=== PATIENT | male | born 1995 | race Two or more races ===

== ENCOUNTER 2025-05-25 09:20 | Emergency (ER) | payer MEDICAID, SELFPAY ==
[2025-05-25 09:29] VITALS: BP 116/80; PULSE 58; RESP 16; TEMP 36.6; O2SAT 100; BMI 19.3
--- NOTE | 2025-05-25 09:42 | PD.EDRME ---
Rapid Medical Screening Exam [facility] Arrival date/time: 05/25/25 09:20 This is a 29-year-old male that comes into the emergency room with complaints of abdominal pain and vomiting that started this morning. Patient also has some diarrhea. Patient reports that he felt fine last night. He ate a burrito but this morning woke up sick. Patient denies alcohol use but does smoke marijuana per patient. Patient denies any past medical history. I have greeted and performed a focused initial assessment of this patient. Initial appropriate labs ordered at this time. A comprehensive ED assessment and evaluation of the patient and analysis of all test and completion of medical decision making process will be conducted by additional ED provider. Chief Complaint: Abdominal Pain Time Seen by Provider: 05/25/25 09:23 Vital signs: Vital Signs Temperature 97.9 F 05/25/25 09:29 Pulse Rate 58 L 05/25/25 09:29 Respiratory Rate 16 05/25/25 09:29 Blood Pressure 116/80 05/25/25 09:29 Pulse Oximetry (%) 100 05/25/25 09:29 Oxygen Delivery Method Room Air 05/25/25 09:29 Exam: Diffuse tenderness throughout abdomen, alert and oriented, breathing even and unlabored. Clinical Impression: Abdominal pain
[2025-05-25] MEDS: ONDANSETRON ODT 4 MG TABRAP PO (09:54)
[2025-05-25 10:08] LABS: Basophils # (Auto) 0.0 Thou/mm3 (0.0-0.2); Basophils % (Auto) 0 % (0-2.5); Eosinophils # (Auto) 0.0 Thou/mm3 (0.0-0.5); Eosinophils % (Auto) 0 % (0-10); Hematocrit 42.7 % (41.0-53.0); Hemoglobin 14.8 g/dL (13.5-16.0); Immature Granulocytes Auto 0.04 Thou/mm3 (0.00-0.00); Lymphocytes # (Auto) 1.2 Thou/mm3 (1.0-4.8); Lymphocytes % (Auto) 9 % (10-50); Mean Corpuscular HGB Conc 34.7 g/dl (31.0-37.0); Mean Corpuscular Hemoglobin 32.6 pg (25.0-35.0); Mean Corpuscular Volume 94 fL (80-100); Monocytes # (Auto) 0.5 Thou/mm3 (0.0-0.8); Monocytes % (Auto) 3 % (0-12); Neutrophils # (Auto) 12.4 Thou/mm3 (1.8-7.7); Neutrophils % (Auto) 88 % (37-80); Nucleated Red Blood Cell # 0.00 Thou/mm3 (0.00-0.00); Nucleated Red Blood Cell % 0 /100 WBC (0); Platelet Count 268 Thou/mm3 (140-440); RDW Standard Deviation 39.9 fL (35.1-43.9); Red Blood Count 4.54 Miln/mm3 (4.50-5.90); White Blood Count 14.1 Thou/mm3 (3.8-10.6)
[2025-05-25 10:23] LABS: Collection Type, Urine Voided; WBC,Urine 0 /hpf (0-5)
[2025-05-25 10:56] LABS: Amorphous Crystals,Urine Present (Absent); Bilirubin,Urine Negative (Negative); Blood,Urine Negative (Negative); Color,Urine Lt-Yellow (Lt Yel-Yel); Culture Indicated,Urine Not Indicated; Glucose, Urine Negative (Negative); Ketones,Urine 1+ (Negative); Leukocyte Esterase,Urine Negative (Negative); Nitrite,Urine Negative (Negative); PH,Urine 8.5 (5.0-7.0); Protein,Urine Trace (Neg - Trace); RBC,Urine 1 /hpf (0-3); Specific Gravity,Urine 1.023 (1.001-1.035); Squamous Epithelial Cell,Urine < 1 /hpf (0-5); Urobilinogen,Urine Negative mg/dL (0.0-1.0)
[2025-05-25 11:00] LABS: Clarity,Urine Hazy (Clear/Hazy)
[2025-05-25 11:02] LABS: Albumin, Serum 4.8 gm/dL (3.5-5.0); Albumin/Globulin Ratio 2.0 (1.2-2.2); Alkaline Phosphatase 71 U/L (46-116); Anion Gap 11 (7-16); Aspartate Amino Transferase 18 U/L (0-34); BUN/Creatinine Ratio 13 Ratio (12-20); Bilirubin,Total 0.3 mg/dL (0.3-1.2); Blood Urea Nitrogen 10 mg/dL (9-23); Calcium 9.0 mg/dL (8.3-10.6); Calcium (Corrected) 9.0 mg/dL (8.5-10.1); Carbon Dioxide 22.4 mMol/L (20.0-31.0); Chloride 109 mMol/L (98-107); Creatinine (Component) 0.8 mg/dL (0.6-1.3); Estimated Creatinine Clearance 103.2 mL/min (>60); Globulin 2.4 gm/dL (2.3-3.5); Glucose 136 mg/dL (74-106); Lipase 32 U/L (12-53); Osmolality,Calculated 284 (275-295); Potassium 3.8 mMol/L (3.4-5.1); Sodium 142 mMol/L (136-145); Total Protein 7.2 gm/dL (5.7-8.2); eGFR > 60 See Note
[2025-05-25 11:08] LABS: Alanine Aminotransferase 9 U/L (10-49)
[2025-05-25 12:29] LABS: Amphetamine/Methamp Scrn,U Negative (Negative); Barbiturate Screen,Urine Negative (Negative); Benzodiazepines Screen,Urine Negative (Negative); Benzoylecgonine Screen, Ur Negative (Negative); Fentanyl Screen,Urine Negative (Negative); Opiate Screen,Urine Negative (Negative); THC Screen,Urine Positive (Negative)
--- NOTE | 2025-05-25 13:52 | PD.EDNV ---
Nausea/Vomit./Diarrhea-RME/HPI General Chief complaint: Abdominal Pain Stated complaint: ABD PAIN, VOMITING Time Seen by Provider: 05/25/25 09:23 Arrival date/time: 05/25/25 09:20 Limitations: no limitations RME / HPI RME / HPI Narrative: 05/25/25 09:20 This is a 29-year-old male that comes into the emergency room with complaints of abdominal pain and vomiting that started this morning. Patient also has some diarrhea. Patient reports that he felt fine last night. He ate a burrito but this morning woke up sick. Patient denies alcohol use but does smoke marijuana per patient. Patient denies any past medical history. I have greeted and performed a focused initial assessment of this patient. Initial appropriate labs ordered at this time. A comprehensive ED assessment and evaluation of the patient and analysis of all test and completion of medical decision making process will be conducted by additional ED provider. DR. LUDY PARIKH ED EVALUATION: 29-year-old male presents to the Emergency Department with nausea and diarrhea that began upon waking this morning. He denies vomiting, fever, chills, sick contacts, or recent travel. No known medical problems, no daily medications, and no allergies. He uses marijuana. No other complaints. Related Data Previous Rx's ?Medication ?Instructions ?Recorded ibuprofen 600 mg tablet 600 mg PO Q6H PRN pain #30 tabs 11/29/20 ondansetron 4 mg disintegrating 4 mg PO Q12H PRN nausea and 05/25/25 tablet vomiting #7 tabs Allergies Allergy/AdvReac Type Severity Reaction Status Date / Time No Known Allergies Allergy Verified 05/25/25 09:22 Review of Systems Review of Systems Systems Reviewed: All systems reviewed, normal except as documented Past Medical History Past Medical History CARDIAC: Negative Congestive Heart Failure RESPIRATORY: Negative Chronic Obstructive Pulmonary Disease (COPD) GENITOURINARY: Negative Renal Disease ENDOCRINE: Negative Diabetes Mellitus Type 1 or Diabetes Mellitus Type 2 Social History SMOKING STATUS: Never smoker SUBSTANCE USE: marijuana ED Exam General Limitations: Present no limitations General appearance: Present alert and in no apparent distress Head Head exam: Present atraumatic, normocephalic and normal inspection Eye Eye exam: Present normal appearance, PERRL and EOMI ENT ENT exam: Present normal exam, normal oropharynx and mucous membranes moist Neck Neck exam: Present normal inspection, full ROM and trachea midline Chest Chest inspection: Present normal inspection and symmetric chest wall rise Respiratory Respiratory exam: Present normal lung sounds bilaterally Cardiovascular Cardiovascular exam: Present regular rate, normal rhythm and normal heart sounds Abdominal Exam Abdominal exam: Present soft; Absent distention, tenderness, guarding or rebound Extremities Exam Extremities exam: Present normal inspection and full ROM Neurological Exam Neurological exam: Present alert, oriented X3 and CN II-XII intact Psychiatric Psychiatric exam: Present normal affect and normal mood Skin Skin exam: Present warm, dry, intact and normal color Course Quality Measures none Orders Category Date Time Status CBC Stat Lab 05/25/25 09:57 Completed Comprehensive Metabolic Panel Stat Lab 05/25/25 09:57 Completed Drug Screen,Urine Stat Lab 05/25/25 10:00 Completed Lipase Stat Lab 05/25/25 09:57 Completed Urinalysis, C/S if Indicated Stat Lab 05/25/25 10:00 Completed Ondansetron Odt [Zofran Odt] Med 05/25/25 09:41 Discontinued 4 mg PO X1 ONE Vital Signs Vital signs: Vital Signs Temperature 97.9 F 05/25/25 09:29 Pulse Rate 58 L 05/25/25 09:29 Respiratory Rate 16 05/25/25 09:29 Blood Pressure 116/80 05/25/25 09:29 Pulse Oximetry (%) 100 05/25/25 09:29 Oxygen Delivery Method Room Air 05/25/25 09:29 Nausea/Vomiting/Diarrhea MDM Narrative MDM Narrative:: I, Germaine Fernandez am scribing for and in the presence of Dr. Leach. 29-year-old male with acute nausea and diarrhea. Vital signs and exam as listed. Concern for metabolic disturbance, viral syndrome, enteritis. Patient abdomen soft nondistended nontender, less likely acute abdomen, perforation obstruction appendicitis. Patient without epigastric pain, less likely cholelithiasis cholecystitis. Ordered labs for medication for symptom leaf. Labs with leukocytosis 14.1, left shift 88%. No significant acute electrolyte nor metabolic abnormality, lipase not elevated urinalysis without evidence of infection. Patient does have amorphous crystals in his urine. Marijuana identified on drug screen. On reevaluation patient hemodynamically stable not in distress. Symptoms well-controlled. Will discharge home with close return precautions follow-up with your primary care doctor. Patient data External records reviewed:: [facility] previous records Clinical information provided by:: patient Social determinants that could affect healthcare access:: substance use Patient has the following chronic illnesses:: No known medical problems, no daily medications, and no allergies. He uses marijuana. How is presenting disease/condition affected by chronic disease/condition?: no chronic disease Evaluation data The following diagnostics were reviewed and interpreted by me:: lab results Lab and/or radiology exams considered but not ordered:: none Interpretation Summary: See MDM narrative above. Medications / Prescriptions Medications / Prescriptions considered but not ordered:: none Medication administrations:: Medication Administration History Discontinued Medications Ondansetron HCl (Ondansetron Odt 4 Mg Tabrap) 4 mg PO X1 ONE; Protocol Stop: 05/25/25 09:42 Last Admin: 05/25/25 09:54 Dose: 4 mg Documented By: NEYMAR see above Consultations Consultation(s) initiated? (list below): No Diagnosis Nausea Differential Diagnosis: other (viral gastroenteritis, food borne illness, and nonspecific diarrhea) Most likely diagnosis given after review of the tests above:: Diarrhea Nausea Admission Indicated Admission indicated?: not indicated Admission Request Was there a request for admission?: No Disposition Plan Disposition Plan: Discharge Discharge Attestation Discharge Attestation: The patient and all family members were given an opportunity to ask questions and understood the discharge instructions. Discharge instructions specifically effects, indications for sooner follow up or return to the emergency department, and the expected course of current diagnosis. Patient condition: Stable Discharge Plan Plan Patient Disposition: HOME (Self Care) Prescriptions/Referrals Prescriptions/Med Rec: New ondansetron 4 mg tablet,disintegrating 4 mg PO Q12H PRN (Reason: nausea and vomiting) Qty: 7 0RF No Action ibuprofen 600 mg tablet 600 mg PO Q6H PRN (Reason: pain) Qty: 30 0RF Referrals: No Primary/Family,Physician [Primary Care Provider] - In 1 week Problem List Clinical Impression: Diarrhea, Nausea Patient/Caregiver Discharge Instructions Education Materials: ED Diarrhea, Unknown Cause, ED Diet for Vomiting or ... Additional Instructions: Your labs today identified that you have elevation in your white blood cell count that is consistent with infection versus inflammation. The rest of your labs were reassuring they did not identify any acute abnormalities your urine was not infected. Your symptoms are most consistent with a virus I recommend that you hydrate well, and eat a bland diet. If your symptoms worsen or you have any other symptom concern is important that you return to the emergency department. Please follow-up with your primary care doctor within 1 to 2 days Print Language: Albanian Stand Alone Forms: [facility] Award Info., Patient Portal Info Letter
== END 2025-05-25 14:13 | disposition home or self-care (01) ==
PROVIDERS: Nurse Practitioner Family; Emergency Provider Emergency Medicine
DX: R11.2 Nausea with vomiting, unspecified (principal)
CPT/HCPCS: 36415; 80053; 80307; 81001; 83690; 85025; 99282; Q0162